=== PATIENT | male | born 1970 ===

== ENCOUNTER 2016-12-09 06:45 | Inpatient (IN) | payer SELFPAY ==
[2016-12-09] MEDS ORDERED: Lorazepam 2 MG/ML VIAL ONE (07:01)
[2016-12-09] MEDS ORDERED: Ketorolac Tromethamine 30 MG/ML VIAL ONE (07:05)
[2016-12-09] MEDS ORDERED: Ondansetron HCl/PF 4 MG/2 ML Vial ONE (07:05)
[2016-12-09 07:15] LABS: #Basophils 0.2 thou/uL (0.0-0.2); #Eosinphils 0.6 thou/uL (0.0-0.7); #Lymphocytes 5.1 thou/uL (1.20-3.40); #Monocytes 1.2 thou/uL (0.11-0.59); #Neutrophils 11.3 thou/uL (1.40-6.50); %Eosinophils 3.3 % (0.0-10.0); %Lymphocytes 27.8 % (21.0-51.0); %Monocytes 6.6 % (0.0-10.0); Hematocrit 51.9 % (42.0-52.0); Mean Platelet Volume 7.7 fL (7.4-10.4); Red Blood Cell (RBC) Count 5.63 mill/uL (4.70-6.10); White Blood Cell (WBC) Count 18.4 thou/uL (4.8-10.8)
--- NOTE | 2016-12-09 07:34 | CT ---
CT ABDOMEN AND PELVIS NONCONTRAST: History: Bilateral flank pain. FINDINGS: No comparison. Each renal collecting system and ureter are decompressed without stone apparent. Urinary bladder is also decompressed. Phleboliths are present throughout the retroperitoneum and pelvis. Lack of contrast limits evaluation for other abnormalities. Prominent patient motion artifact limits detail. There is calcification in the arterial structures. Liver is diffusely hypodense. IMPRESSION: 1. No CT evidence of urinary tract obstruction or calcification. 2. Hepatosteatosis. POS: [facility]
[2016-12-09 07:36] LABS: ALT (SGPT) 52 U/L (8-55); AST (SGOT) 31 U/L (5-34); Alkaline Phosphatase 68 U/L (40-150); Anion Gap 22 mmol/L (10-20); BUN (Urea Nitrogen) 14 mg/dL (8.9-20.6); Bilirubin, Total 0.9 mg/dL (0.2-1.2); Calc. Creatinine Clearance 0 mL/min (70-130); Calcium 9.9 mg/dL (7.8-10.44); Carbon Dioxide 20 mmol/L (22-29); Chloride 100 mmol/L (98-107); Estimated GFR-MDRD 74; Globulin 4.1 g/dL (2.4-3.5); Protein, Total 8.7 g/dL (6.0-8.3)
[2016-12-09 08:03] LABS: Lactic Acid - Sepsis 5.2 mmol/L (0.5-2.2)
[2016-12-09 08:51] LABS: Troponin I Less than 0.010 ng/mL (< 0.028)
[2016-12-09] MEDS ORDERED: Pantoprazole 40 MG VIAL ONE (08:59)
[2016-12-09] MEDS ORDERED: Fentanyl 100 MCG/2 ML VIAL ONE (09:03)
--- NOTE | 2016-12-09 09:56 | ULT ---
GALLBLADDER ULTRASOUND: Date: 12/09/16 CLINICAL HISTORY: Right upper quadrant pain. Reference made to CT exam from earlier same date. FINDINGS: There is increased echotexture of the hepatic parenchyma. This indicates fatty infiltration of the l iver with relative sparing near the gallbladder. No evidence of cholelithiasis or gallbladder wall t hickening. Common duct is normal at 3.0 mm. Giordano's sign reported as negative by the online content editor. N o ascites. IMPRESSION: 1. No acute gallbladder pathology. 2. Coarsened/increased echotexture of the hepatic parenchyma, favoring hepatic steatosis with relat waldemar sparing of the gallbladder. This could be confirmed with liver function enzymes as necessary. POS: [facility]
--- NOTE | 2016-12-09 10:56 | CT ---
CONTRAST ENHANCED ABDOMEN AND PELVIC CT: INDICATION: Abdominal pain. Elevated lactate. FINDINGS: There is peripancreatic inflammation and free fluid. No drainable fluid collection. The contrast-e nhanced pancreas is otherwise homogeneous without definitive evidence for necrosis. There is hepati c steatosis with scattered areas of focal fatty sparring. No focal splenic lesion. Adrenal glands are unremarkable. No acute renal pathology. The contrast-opacified small bowel is normal in calibe r. There are bilateral patulous fat-containing inguinal rings. There is a fat-containing umbilical hernia without inflammation. No free air. The imaged aorta is normal in caliber. There are scatt ered patchy opacities of each lung base favoring atelectasis. There is mild colonic diverticulosis. Osseous structures reveal no acute pathology. IMPRESSION: 1. CT evidence of acute pancreatitis. 2. Hepatic steatosis. POS: [facility]
[2016-12-09 11:21] LABS: Bilirubin Negative (Negative); Blood, Urine Negative (Negative); Glucose, Urine (Dipstick) Negative (Negative); Ketone, Urine Negative (Negative); Nitrite Negative (Negative); Protein, Urine (Dipstick) Trace mg/dL (Neg-Trace); Urobilinogen 0.2 mg/dL (0.2-1.0)
[2016-12-09] MEDS ORDERED: FLU VACC QS2017-18 36 mo. & older 0.5 ML SYRINGE IM ONE (11:45)
[2016-12-09] MEDS: Sodium Chloride 0.9% 1,000 ML IV SCH ×4 (11:45→23:56)
[2016-12-09] MEDS ORDERED: Labetalol HCl 100 MG/20 ML VIAL SLOW IVP SCH ×4 (11:45→18:00)
[2016-12-09 12:07] LABS: Cholesterol 252 mg/dl (< 200 Desired)
[2016-12-09 12:29] LABS: Amphetamine Not Detected (NotDetected); Methadone Not Detected (NotDetected); Methamphetamine Detected (NotDetected)
[2016-12-09] MEDS ORDERED: Ondansetron HCl/PF 4 MG/2 ML Vial IVP PRN (13:15)
[2016-12-09] MEDS ORDERED: Lorazepam 2 MG/ML VIAL SLOW IVP SCH ×3 (14:15→18:00)
[2016-12-09] MEDS ORDERED: ISOVUE-370 76%-LOCM 1 ML ONE (14:58)
[2016-12-09 15:23] LABS: Hemoglobin A1c 5.3 % (4.0-6.0)
[2016-12-09 15:35] LABS: Lactic Acid - Sepsis 3.9 mmol/L (0.5-2.2)
[2016-12-09 15:38] LABS: Acetaminophen Less than 6.0 mcg/mL (10.0-30.0); CK (CPK) 79 U/L (30-200); Salicylate Less than 8.0 mg/dL (15.0-30.0)
[2016-12-09 15:44] LABS: Troponin I 0.012 ng/mL (< 0.028)
[2016-12-09] MEDS ORDERED: Sodium Chloride 0.9% 1,000 ML IV SCH (17:31)
--- NOTE | 2016-12-09 20:55 | HP-2 ---
CODE STATUS: FULL. PRIMARY CARE PHYSICIAN: None. ATTENDING: Rush Min M.D. RESIDENT: Shiela Bey M.D., PGY-2. HISTORIAN: Patient. CHIEF COMPLAINT: Abdominal pain. HISTORY OF PRESENT ILLNESS: The patient is a 46-year-old male with no past medical history, who pre sents with sudden onset, sharp, constant left upper quadrant pain. The pain radiates into his back and associated with nausea. The patient tried ibuprofen for the pain and he states that it was not helpful. The patient states that the pain is worse with inspiration. He has never had pain like th is before. He denies any chronic medical problems. He does not take any medications. He denies hi story of gallbladder disease. He has never had any abdominal surgeries. The patient states that he drinks a couple of beers per month and denies binge drinking. In the emergency department, the patient received 100 mcg of fentanyl, morphine 8 mg, Zofran 8 mg, P rotonix 40 mg, and 1 liter of normal saline. PAST MEDICAL HISTORY: None. PAST SURGICAL HISTORY: Tonsillectomy. ALLERGIES: No known drug allergies. MEDICATIONS: None. FAMILY HISTORY: The patient states that his mother has history of coronary artery disease. SOCIAL HISTORY: The patient smokes 1 pack per week. Alcohol use as described above. He reports da radha marijuana use. Occupation: The patient works at [employer]. REVIEW OF SYSTEMS: General: The patient reports subjective fever, denies weight change, appetite c hange, sleep change, night sweats and fatigue. Eyes: The patient denies vision changes and eye reyna n. ENT: The patient denies nasal congestion, rhinorrhea, and sore throat. Respiratory: The patie nt reports shortness of breath. He denies cough, congestion, and exercise intolerance. Cardiovascu lar: The patient denies chest pain, palpitations, edema, paroxysmal nocturnal dyspnea and orthopnea . Gastrointestinal: The patient reports nausea and abdominal pain. He denies vomiting, diarrhea, constipation and GI bleeding. Genitourinary: The patient denies incontinence, dysuria, polyuria or discharge. Skin: The patient denies rashes, lesions, jaundice and itching. Musculoskeletal: The patient denies pain, tenderness, stiffness, swelling and arthritis/arthralgias. Neurologic: The p atient denies weakness, numbness, syncope, and seizure. Psychiatric: The patient denies anxiety an d depression. PHYSICAL EXAMINATION: VITAL SIGNS: Blood pressure 223/125, pulse 58, respirations 18, T-max 98.1, pulse ox 98% on room ai r, weight 95.71 kilograms. GENERAL: The patient is alert and oriented x3. He is in no apparent distress. However, he appears to be extremely uncomfortable due to pain. He is appropriately interactive. HEENT: Eyes: Pupils are equal, round, and reactive to light. Extraocular muscles are intact. Exa mination of the oropharynx reveals dry mucous membranes. NECK: Supple with no lymphadenopathy. CARDIOVASCULAR: Regular rate and rhythm with no murmurs, rubs or gallops. RESPIRATORY: Lungs clear to auscultation bilaterally. The patient is breathing with slightly incre ased effort. There are no retractions present. SKIN: Warm and dry with no cyanosis or lesions. ABDOMEN: Soft. There is diffuse tenderness to palpation especially worse in the epigastrium. Ther e is voluntary guarding with no rebound tenderness. EXTREMITIES: No clubbing, cyanosis or edema. MUSCULOSKELETAL: Structure and tone within normal limits. NEUROLOGIC: Cranial nerves II-XII intact with no focal deficits. LABORATORY DATA: 1. CBC: White blood cell count of 18.4, hemoglobin 17.7, hematocrit 51.9, platelet count of 324. 2. CMP: Sodium 138, potassium 4.0, chloride 100, CO2 of 20, BUN 14, creatinine 1.08, glucose 163, total protein 8.7, albumin 4.1, total bilirubin 0.9, AST 31, ALT 52, alkaline phosphatase 68. 3. Lactic acid 5.2. 4. Cardiac enzymes: CK-MB 1.4, troponin less than 0.01. 5. Lipase 8615. EKG shows normal sinus rhythm with no evidence of ischemia or arrhythmia. IMAGING: CT of the abdomen and pelvis shows no evidence of stones, hepatic steatosis is present. ASSESSMENT AND PLAN: The patient is a 46-year-old male with no past medical history, who reports on e-day history of severe abdominal pain. 1. Hypertensive urgency. We will add p.r.n. labetalol as a goal of decreasing patient's blood pres sure no more than 25% in 24 hours. We will add amlodipine for daily blood pressure control. We debi l also order a urine drug screen due to the fact the patient has no other comorbidities. 2. Acute pancreatitis. Amita score of 1 on admission. We will begin treatment with IV fluids, franko wel rest and pain control with morphine. Right upper quadrant ultrasound has been ordered and is pe nding. We will also order fasting lipid panel and hemoglobin A1c to further investigate causes of a cute pancreatitis. DISPOSITION: Stable. LENGTH OF HOSPITAL STAY: At least 2 midnights. Symptomatic medications will be provided. History and physical exam as well as management discussed with Dr. Rush Min, who seen and evaluated the patient and is in agreement with this plan.
--- NOTE | 2016-12-09 21:51 | HP ---
9DATE OF ADMISSION: 12/09/2016 CHIEF COMPLAINT: Abdominal pain. HISTORY OF PRESENT ILLNESS: This is a 46-year-old male with no past medical history who presents with acute onset of mid epigastric and left abdominal pain that was described as achy 12/10 pain with associated nausea, vomiting, and chills. No diarrhea, constipation, hematemesis, hematochezia, or melena. He was in the ED where he was diagnosed with pancreatitis, given IV fluids, 5 mg labetalol IV for elevated blood pressure and subsequently admitted to our service. REVIEW OF SYSTEMS: CONSTITUTIONAL: Positive for chills. Negative for fever. EYES: Without decreased visual acuity or eye pain. ENT: Ears without decrease hearing or ear pain. No sore throat or oral lesions. CARDIOVASCULAR: No chest pain or palpitations. RESPIRATORY: No shortness of breath or wheezing. ABDOMEN: See HPI. : Denies dysuria or urgency. MUSCULOSKELETAL: No myalgias or arthralgias. NEUROLOGIC: No numbness or weakness. PSYCHIATRIC: No depression or anxiety. PAST MEDICAL HISTORY: Negative. PAST SURGICAL HISTORY: Positive for tonsillectomy. MEDICATIONS: None. ALLERGIES: PENICILLINS, reportedly. SOCIAL HISTORY: Positive for tobacco abuse, marijuana abuse and occasional alcohol which he says less than a 6-pack this summer. FAMILY HISTORY: Positive for coronary artery disease in the father. PHYSICAL EXAMINATION: VITAL SIGNS: Vitals most recent we have available are actually from the ED include a temperature of 98.1, pulse 73, blood pressure 231/121, respirations 17 , O2 sat 90% on room air. GENERAL: The patient appears uncomfortable, nontoxic. HEENT: Eyes without icterus or injection. Pinna is normal. Nares patent. Moist mucous membranes. NECK: Trachea midline and mobile. CARDIOVASCULAR: Regular rate and rhythm without murmurs, gallops or rubs. No peripheral edema. RESPIRATORY: Clear to auscultation bilaterally. No wheeze, rales or rhonchi. Slight tachypnea. ABDOMEN: Hyperactive bowel sounds and palpation across the upper abdomen. No peritoneal signs, guarding, or rigidity. : Deferred. MUSCULOSKELETAL: Without deformity or fracture or effusion. Neuro motor 5/5 in all 4 extremities. Sensation intact to light touch as well. SKIN: With wound, but he does have several scattered hyperpigmented patches across upper body. He is cool to touch without . LYMPHATIC: Without cervical or axillary lymphadenopathy. PSYCHIATRIC: Alert and oriented x3. Mood and affect appropriate for current situation. LABORATORY DATA: Positive for a white count of 18.4, hemoglobin of 17.7, platelets 323. Chemistry: Sodium 138, potassium 4, chloride 100, CO2 of 28, gap of 22, creatinine 1.08, glucose 163, lactic acid of 5.2, and normal LFTs otherwise. Lipase 8615. Troponin less than 0.01. Urine is negative. IMAGING: Positive for abdominal CT with multiple fecaliths, fat stranding around the pancreas, and otherwise no acute findings. Abdominal ultrasound is positive for abnormal echotexture of the liver consistent with hepatic steatosis as well as no gallstones visualized. ASSESSMENT AND PLAN: This is a 46-year-old with: 1. Acute pancreatitis. We will begin treated with IV morphine or Dilaudid for pain control. Await lipid panel, A1c for secondary causes. Normal saline 200 mL an hour of 24 hours and monitor closely. 2. Hypertensive urgency. We will go and give labetalol 10 mg, start Norvasc and possibly hydrochlorothiazide pending above workup 3. Tobacco abuse, counseled cessation. 4. Marijuana abuse. Discussed with the patient, we will go ahead and order UDS. 5. Deep venous thrombosis prophylaxis with Lovenox. 6. Gastrointestinal prophylaxis with a PPI while NPO. He can advance his diet as tolerated as far as I am concerned. He will start with ice chips and advance Zofran p.r.n. nausea. MTDD
[2016-12-09] MEDS: Atorvastatin Calcium 40 MG TAB PO SCH (21:58)
[2016-12-10] MEDS ORDERED: Labetalol HCl 100 MG/20 ML VIAL SLOW IVP PRN (01:17)
[2016-12-10] MEDS: Lorazepam 2 MG/ML VIAL SLOW IVP PRN ×3 (03:16→20:54)
[2016-12-10] MEDS: Sodium Chloride 0.9% 1,000 ML IV SCH ×4 (04:07→20:54)
[2016-12-10 05:02] LABS: #Eosinphils 0.1 thou/uL (0.0-0.7); #Lymphocytes 1.3 thou/uL (1.20-3.40); #Monocytes 1.1 thou/uL (0.11-0.59); #Neutrophils 13.5 thou/uL (1.40-6.50); %Basophils 0.1 % (0.0-1.0); %Eosinophils 0.4 % (0.0-10.0); %Lymphocytes 8.3 % (21.0-51.0); %Monocytes 6.8 % (0.0-10.0); Hematocrit 48.2 % (42.0-52.0); Mean Platelet Volume 7.6 fL (7.4-10.4); Red Blood Cell (RBC) Count 5.18 mill/uL (4.70-6.10)
[2016-12-10 05:17] VITALS: BMI 29.0
[2016-12-10 05:37] LABS: ALT (SGPT) 35 U/L (8-55); AST (SGOT) 21 U/L (5-34); Alkaline Phosphatase 54 U/L (40-150); Anion Gap 14 mmol/L (10-20); BUN (Urea Nitrogen) 8 mg/dL (8.9-20.6); Calc. Creatinine Clearance 192 mL/min (70-130); Calcium 8.7 mg/dL (7.8-10.44); Carbon Dioxide 22 mmol/L (22-29); Chloride 100 mmol/L (98-107); Estimated GFR-MDRD Greater than 90; Globulin 3.3 g/dL (2.4-3.5); Protein, Total 7.3 g/dL (6.0-8.3)
[2016-12-10] MEDS: Enoxaparin Sodium 40 MG/0.4 ML SYRINGE SC SCH (08:14)
--- NOTE | 2016-12-10 08:42 | PDOC.FM ---
Addendum entered and electronically signed by Shiela Bey MD 12/10/16 09: 40: Ileus -likely secondary to narcotics; will continue narcotics for now to treat pain due to pancreatitis. -advance diet to clear liquids, to aid gut motility Original Note: - Subjective Subjective: Pt's blood pressures finally started to normalize this morning. He still reports diffuse abdominal pain. He has not passed gas or had a bowel movement since admission. - Objective MAR Reviewed: Yes Vital Signs & Weight: Vital Signs (12 hours) Pulse BP 12/10/16 08:13 84 144/90 H 12/10/16 01:08 84 185/99 H Weight Weight 97.2 kg Most Recent Monitor Data Heart Rate from ECG 91 NIBP 161/104 NIBP BP-Mean 125 Respiration from ECG 20 SpO2 100 I&O: 12/09/16 12/10/16 12/11/16 06:59 06:59 06:59 Intake Total 2834 Output Total 2175 Balance 659 Result Diagrams: 12/10/16 04:04 12/10/16 04:04 <Shiela Bey - Last Filed: 12/10/16 09:06> - Objective Vital Signs & Weight: Vital Signs (12 hours) Temp Pulse Resp BP Pulse Ox 12/10/16 08:13 84 144/90 H 12/10/16 08:00 98 F 84 17 100 12/10/16 07:51 100 12/10/16 01:08 84 185/99 H Weight Weight 97.2 kg Most Recent Monitor Data Heart Rate from ECG 91 NIBP 144/90 NIBP BP-Mean 104 Respiration from ECG 21 SpO2 100 I&O: 12/09/16 12/10/16 12/11/16 06:59 06:59 06:59 Intake Total 2834 436 Output Total 2175 430 Balance 659 6 Result Diagrams: 12/10/16 04:04 12/10/16 04:04 <Rush Min - Last Filed: 12/10/16 10:22> Phys Exam - Physical Examination Constitutional: NAD Respiratory: clear to auscultation bilateral Cardiovascular: RRR Gastrointestinal: positive bowel sounds diffuse tenderness; diffuse distention and tympany Musculoskeletal: no edema <Shiela Bey - Last Filed: 12/10/16 09:06> Dx/Plan (1) Hypertensive urgency Code(s): I16.0 - HYPERTENSIVE URGENCY Status: Acute Plan: 2/2 to methamphetamine intoxication. prn antihypertensives and ativan for BP >180/100 Amlodipine started. will transfer out of the unit today. (2) Acute pancreatitis Code(s): K85.90 - ACUTE PANCREATITIS WITHOUT NECROSIS OR INFECTION, UNSP Status: Acute Plan: uncertain etiology IV fluids, pain control with morphine. advance to clear liquids. (3) Hypertriglyceridemia Code(s): E78.1 - PURE HYPERGLYCERIDEMIA Status: Acute Plan: Will start statin. (4) Methamphetamine abuse Code(s): F15.10 - OTHER STIMULANT ABUSE, UNCOMPLICATED Status: Acute Plan: Pt denies meth use although UDS shows meth. <Shiela Bey - Last Filed: 12/10/16 09:06> - Plan Plan: Seen and examined with Dr. Bey. Conn portions of the history and physical exam repeated. I agree with their assessment and plan with the following addendum. ROS: no f/c. No cp/sob. Abd pain as detailed, improved from yesterday. Some of his presentation c/w acute meth tox. IVF, advance diet to clears if he tolerates. Elevated bili with negative hepatobiliary workup thus far. Will monitor. <Rush Min - Last Filed: 12/10/16 10:22>
[2016-12-10] MEDS: Atorvastatin Calcium 40 MG TAB PO SCH (20:10)
[2016-12-11] MEDS: Atorvastatin Calcium 40 MG TAB PO SCH ×2 (01:15→21:01)
[2016-12-11] MEDS: Sodium Chloride 0.9% 1,000 ML IV SCH ×5 (04:22→22:49)
[2016-12-11] MEDS: Lorazepam 2 MG/ML VIAL SLOW IVP PRN ×3 (04:37→17:44)
[2016-12-11 05:11] LABS: #Lymphocytes 1.3 thou/uL (1.20-3.40); #Monocytes 1.5 thou/uL (0.11-0.59); #Neutrophils 14.7 thou/uL (1.40-6.50); %Basophils 0.1 % (0.0-1.0); %Eosinophils 0.3 % (0.0-10.0); %Lymphocytes 7.6 % (21.0-51.0); %Monocytes 8.3 % (0.0-10.0); Hematocrit 45.5 % (42.0-52.0); Mean Platelet Volume 7.3 fL (7.4-10.4); Red Blood Cell (RBC) Count 4.84 mill/uL (4.70-6.10); White Blood Cell (WBC) Count 17.5 thou/uL (4.8-10.8)
[2016-12-11 05:31] LABS: ALT (SGPT) 23 U/L (8-55); AST (SGOT) 21 U/L (5-34); Alkaline Phosphatase 55 U/L (40-150); Anion Gap 10 mmol/L (10-20); BUN (Urea Nitrogen) 7 mg/dL (8.9-20.6); Bilirubin, Total 3.3 mg/dL (0.2-1.2); Calc. Creatinine Clearance 187 mL/min (70-130); Carbon Dioxide 24 mmol/L (22-29); Chloride 100 mmol/L (98-107); Estimated GFR-MDRD Greater than 90; Protein, Total 7.1 g/dL (6.0-8.3)
[2016-12-11] MEDS ORDERED: Potassium Chloride 20 MEQ TAB PO SCH (07:30)
[2016-12-11] MEDS ORDERED: Morphine Sulfate 2 MG/ML SYRINGE SLOW IVP PRN (07:59)
--- NOTE | 2016-12-11 08:07 | PDOC.FM ---
- Subjective Subjective: Pt continues to have abdominal pain despite scheduled pain meds. He is passing gas, but has not had a bowel movement since prior to admission. - Objective MAR Reviewed: Yes Vital Signs & Weight: Vital Signs (12 hours) Temp Pulse Resp BP Pulse Ox 12/11/16 07:59 98.6 F 84 17 148/89 H 95 12/11/16 04:43 98 F 91 18 144/93 H 95 12/11/16 00:00 99.4 F 93 16 139/89 95 Weight Weight 93.349 kg Most Recent Monitor Data Heart Rate from ECG 91 NIBP 144/90 NIBP BP-Mean 104 Respiration from ECG 21 SpO2 100 I&O: 12/10/16 12/11/16 12/12/16 06:59 06:59 06:59 Intake Total 2834 2236 2300 Output Total 2175 1330 1300 Balance 232 092 9364 Result Diagrams: 12/11/16 04:09 12/11/16 04:09 <Shiela Bey - Last Filed: 12/11/16 08:08> - Objective Vital Signs & Weight: Vital Signs (12 hours) Temp Pulse Resp BP BP Pulse Ox 12/11/16 13:00 98.9 F 84 18 142/82 H 95 12/11/16 12:07 84 142/82 H 12/11/16 08:00 98.6 F 84 17 95 12/11/16 07:59 98.6 F 84 17 148/89 H 95 12/11/16 04:43 98 F 91 18 144/93 H 95 Weight Weight 205 lb 12.8 oz Most Recent Monitor Data Heart Rate from ECG 91 NIBP 144/90 NIBP BP-Mean 104 Respiration from ECG 21 SpO2 100 I&O: 12/10/16 12/11/16 12/12/16 06:59 06:59 06:59 Intake Total 2834 2236 2300 Output Total 2175 1330 1300 Balance 762 346 9042 Result Diagrams: 12/11/16 04:09 12/11/16 04:09 <Ariadne Mosley - Last Filed: 12/11/16 14:42> Phys Exam - Physical Examination Constitutional: NAD Cardiovascular: RRR Gastrointestinal: soft diffuse tenderness; slight distention and tympany Psychiatric: normal affect <Shiela Bey - Last Filed: 12/11/16 08:08> Dx/Plan (1) Acute pancreatitis Code(s): K85.90 - ACUTE PANCREATITIS WITHOUT NECROSIS OR INFECTION, UNSP Status: Acute Plan: uncertain etiology IV fluids Pain control with scheduled and prn morphine. (2) Elevated bilirubin Code(s): R17 - UNSPECIFIED JAUNDICE Status: Acute Plan: conjugated hyperbilirubinemia missed stone vs. inflammation. will repeat RUQ US. (3) Hypertensive urgency Code(s): I16.0 - HYPERTENSIVE URGENCY Status: Resolved Plan: BPs stable. continue amlodipine (4) Hypertriglyceridemia Code(s): E78.1 - PURE HYPERGLYCERIDEMIA Status: Acute Plan: Will start statin. (5) Methamphetamine abuse Code(s): F15.10 - OTHER STIMULANT ABUSE, UNCOMPLICATED Status: Acute Plan: Pt denies meth use although UDS shows meth. <Shiela Bey - Last Filed: 12/11/16 08:08> Attending Addendum - Attending Addendum I personally evaluated the patient and discussed the management with Dr. Bey. I agree with the History, Examination, Assessment and Plan documented above with any addition or exceptions noted below. Patient is still having a lot of pain. He also has an ileus. He is passing gas, but no BM. Total bili has gone up to 3 with direct bili of 1 and normal AST/ ALT. GGT is up, probably due to fatty liver. Ultrasound shows some possible gallbladder sludge, which is probably the cause of the pancreatitis. Will keep patient NPO for now due to ileus. He has gaseous distention of the abdomen and it is tender. Continue IVF and pain medicines. Consider changing to lactated ringers, as they can improve outcome if patient does NOT have hypercalcemia. <Ariadne Mosley - Last Filed: 12/11/16 14:42>
[2016-12-11] MEDS: Enoxaparin Sodium 40 MG/0.4 ML SYRINGE SC SCH (08:37)
--- NOTE | 2016-12-11 13:07 | ULT ---
RIGHT UPPER QUADRANT ULTRASOUND: HISTORY: Pancreatitis, hyperbilirubinemia. FINDINGS: Multiple longitudinal and transverse images of the right upper quadrant of the abdomen are obtained using a multihertz curvilinear transducer. Real-time, color flow, and spectral waveform Doppler kimber lysis is used to evaluate the right upper quadrant. There is some moderate hepatomegaly with the liver measuring 19.5 cm in the mid clavicular line. Fi brofatty change is seen in the liver. The gallbladder contains no evidence of gallstones; however, some hyperechoic material is seen compatible with gallbladder sludge. No evidence of pericholecysti c fluid is seen. Common bile duct is of normal size measuring 5 mm. The right kidney is unremarkab le measuring 12.1 cm from pole to pole. Normal hepatopetal flow is seen in the portal system. IMPRESSION: Gallbladder sludge. Otherwise, unremarkable right upper quadrant ultrasound. POS: [facility]
[2016-12-12] MEDS: Lorazepam 2 MG/ML VIAL SLOW IVP PRN ×4 (00:28→21:22)
[2016-12-12] MEDS: Sodium Chloride 0.9% 1,000 ML IV SCH ×5 (04:37→20:22)
[2016-12-12 05:24] LABS: #Basophils 0.1 thou/uL (0.0-0.2); #Eosinphils 0.1 thou/uL (0.0-0.7); #Lymphocytes 1.6 thou/uL (1.20-3.40); #Monocytes 1.2 thou/uL (0.11-0.59); #Neutrophils 9.8 thou/uL (1.40-6.50); %Basophils 0.5 % (0.0-1.0); %Eosinophils 0.8 % (0.0-10.0); %Lymphocytes 12.3 % (21.0-51.0); %Monocytes 9.3 % (0.0-10.0); Hematocrit 40.7 % (42.0-52.0); Mean Platelet Volume 7.5 fL (7.4-10.4); Red Blood Cell (RBC) Count 4.31 mill/uL (4.70-6.10); White Blood Cell (WBC) Count 12.7 thou/uL (4.8-10.8)
[2016-12-12 07:18] LABS: ALT (SGPT) 22 U/L (8-55); AST (SGOT) 21 U/L (5-34); Alkaline Phosphatase 69 U/L (40-150); Anion Gap 11 mmol/L (10-20); BUN (Urea Nitrogen) 7 mg/dL (8.9-20.6); Bilirubin, Total 2.6 mg/dL (0.2-1.2); Calc. Creatinine Clearance 200 mL/min (70-130); Calcium 8.7 mg/dL (7.8-10.44); Carbon Dioxide 22 mmol/L (22-29); Chloride 104 mmol/L (98-107); Estimated GFR-MDRD Greater than 90; Globulin 3.4 g/dL (2.4-3.5); Protein, Total 6.7 g/dL (6.0-8.3)
[2016-12-12] MEDS: Enoxaparin Sodium 40 MG/0.4 ML SYRINGE SC SCH (08:23)
--- NOTE | 2016-12-12 10:56 | PDOC.FM ---
- Subjective Subjective: Patient states that his pain is better controlled this morning. No adverse events overnight. - Objective MAR Reviewed: Yes Vital Signs & Weight: Vital Signs (12 hours) Temp Pulse Resp BP BP Pulse Ox 12/12/16 08:24 84 139/90 12/12/16 08:21 99.9 F H 84 17 139/90 95 12/12/16 04:00 100.1 F H 82 20 142/88 H 93 L Weight Weight 93.531 kg Most Recent Monitor Data Heart Rate from ECG 91 NIBP 144/90 NIBP BP-Mean 104 Respiration from ECG 21 SpO2 100 I&O: 12/11/16 12/12/16 12/13/16 06:59 06:59 06:59 Intake Total 2236 5200 Output Total 1330 3250 Balance 906 1950 Result Diagrams: 12/12/16 04:14 12/12/16 04:14 <Shiela Bey - Last Filed: 12/12/16 10:56> - Objective Vital Signs & Weight: Vital Signs (12 hours) Temp Pulse Resp BP BP Pulse Ox 12/12/16 12:15 98.3 F 81 16 142/93 H 95 12/12/16 08:24 84 139/90 12/12/16 08:21 99.9 F H 84 17 139/90 95 12/12/16 04:00 100.1 F H 82 20 142/88 H 93 L Weight Weight 206 lb 3.2 oz Most Recent Monitor Data Heart Rate from ECG 91 NIBP 144/90 NIBP BP-Mean 104 Respiration from ECG 21 SpO2 100 I&O: 12/11/16 12/12/16 12/13/16 06:59 06:59 06:59 Intake Total 2236 5200 Output Total 1330 3250 Balance 906 1950 Result Diagrams: 12/12/16 04:14 12/12/16 04:14 <Ariadne Mosley - Last Filed: 12/12/16 14:38> Phys Exam - Physical Examination Gastrointestinal: positive bowel sounds distention and tympany unchanged from prior exam <Shiela Bey - Last Filed: 12/12/16 10:56> Dx/Plan (1) Acute pancreatitis Code(s): K85.90 - ACUTE PANCREATITIS WITHOUT NECROSIS OR INFECTION, UNSP Status: Acute Plan: uncertain etiology Pt notes improvement in pain. Will slowly advance diet to clear. (2) Elevated bilirubin Code(s): R17 - UNSPECIFIED JAUNDICE Status: Acute Plan: conjugated hyperbilirubinemia improving. RUQ US shows GB sludge. Repeat CMP in am. (3) Hypertensive urgency Code(s): I16.0 - HYPERTENSIVE URGENCY Status: Resolved Plan: BPs stable. continue amlodipine (4) Hypertriglyceridemia Code(s): E78.1 - PURE HYPERGLYCERIDEMIA Status: Acute Plan: Will start statin. (5) Methamphetamine abuse Code(s): F15.10 - OTHER STIMULANT ABUSE, UNCOMPLICATED Status: Acute Plan: Pt denies meth use although UDS shows meth. - Plan Plan: Transfer to medical floor. <Shiela Bey - Last Filed: 12/12/16 10:56> Attending Addendum - Attending Addendum I personally evaluated the patient and discussed the management with Dr. Bey. I agree with the History, Examination, Assessment and Plan documented above with any addition or exceptions noted below. Patient is doing much better today. He says pain is adequately controlled and is still passing gas. He has not had a BM yet. His abdomen is soft with mild tenderness. He plans walk after his nap this morning. Labs are improving. It looks like pancreatitis was caused by gallbladder sludge seen on ultrasound. Since his ileus is improved, will start clear liquid diet. Will need to address elevated triglyceridesafter discharge. Will need low carb, low fat diet. Will transfer to medical floor. <Ariadne Mosley - Last Filed: 12/12/16 14:38>
[2016-12-12] MEDS: Atorvastatin Calcium 40 MG TAB PO SCH (20:23)
[2016-12-13] MEDS: Sodium Chloride 0.9% 1,000 ML IV SCH ×2 (02:56→05:34)
[2016-12-13 05:44] LABS: #Basophils 0.1 thou/uL (0.0-0.2); #Eosinphils 0.2 thou/uL (0.0-0.7); #Lymphocytes 1.5 thou/uL (1.20-3.40); #Monocytes 1.4 thou/uL (0.11-0.59); #Neutrophils 9.6 thou/uL (1.40-6.50); %Basophils 0.5 % (0.0-1.0); %Eosinophils 1.4 % (0.0-10.0); %Lymphocytes 11.4 % (21.0-51.0); Hematocrit 38.9 % (42.0-52.0); Mean Platelet Volume 6.6 fL (7.4-10.4); Red Blood Cell (RBC) Count 4.17 mill/uL (4.70-6.10); White Blood Cell (WBC) Count 12.6 thou/uL (4.8-10.8)
[2016-12-13 09:49] LABS: ALT (SGPT) 61 U/L (8-55); AST (SGOT) 89 U/L (5-34); Alkaline Phosphatase 74 U/L (40-150); Anion Gap 13 mmol/L (10-20); BUN (Urea Nitrogen) 6 mg/dL (8.9-20.6); Bilirubin, Total 4.6 mg/dL (0.2-1.2); Calc. Creatinine Clearance 212 mL/min (70-130); Calcium 8.8 mg/dL (7.8-10.44); Carbon Dioxide 22 mmol/L (22-29); Chloride 103 mmol/L (98-107); Estimated GFR-MDRD Greater than 90; Globulin 3.6 g/dL (2.4-3.5)
[2016-12-13] MEDS: Enoxaparin Sodium 40 MG/0.4 ML SYRINGE SC SCH (10:01)
[2016-12-13] MEDS: Lactated Ringer's 1,000 ML IV SCH ×3 (10:05→19:59)
--- NOTE | 2016-12-13 10:27 | PDOC.FM ---
- Subjective Subjective: [place] overnight, VSS. Pt tolerated CLD yesterday and w/ breakfast this AM. Endorses improved pain. 3 BM yesterday and + flatus. Endorses ambulation. - Objective MAR Reviewed: Yes Vital Signs & Weight: Vital Signs (12 hours) Temp Pulse Resp BP Pulse Ox 12/13/16 08:00 98.4 F 87 16 159/100 H 98 12/13/16 03:48 98.3 F 90 19 158/83 H 94 L 12/13/16 00:03 99.3 F 83 20 161/98 H 99 Weight Weight 102.087 kg Most Recent Monitor Data Heart Rate from ECG 91 NIBP 144/90 NIBP BP-Mean 104 Respiration from ECG 21 SpO2 100 I&O: 12/12/16 12/13/16 12/14/16 06:59 06:59 06:59 Intake Total 5200 2630 Output Total 3250 1250 Balance 1950 1380 Result Diagrams: 12/13/16 05:15 12/13/16 09:19 <Rush Walker - Last Filed: 12/13/16 10:25> - Objective Vital Signs & Weight: Vital Signs (12 hours) Temp Pulse Resp BP Pulse Ox 12/13/16 08:00 98.4 F 87 16 159/100 H 98 12/13/16 03:48 98.3 F 90 19 158/83 H 94 L 12/13/16 00:03 99.3 F 83 20 161/98 H 99 Weight Weight 102.087 kg Most Recent Monitor Data Heart Rate from ECG 91 NIBP 144/90 NIBP BP-Mean 104 Respiration from ECG 21 SpO2 100 I&O: 12/12/16 12/13/16 12/14/16 06:59 06:59 06:59 Intake Total 5200 2630 Output Total 3250 1250 Balance 1950 1380 Result Diagrams: 12/13/16 05:15 12/13/16 09:19 <Mile Paul - Last Filed: 12/13/16 11:06> Phys Exam - Physical Examination Constitutional: NAD Respiratory: no wheezing, clear to auscultation bilateral Cardiovascular: RRR, no significant murmur Gastrointestinal: positive bowel sounds mild distention w/ mild TTP LUQ. No guarding/rebound tenderness. No rigidit Musculoskeletal: no edema, pulses present Neurological: moves all 4 limbs Psychiatric: A&O x 3 Skin: cap refill <2 seconds <Rush Walker - Last Filed: 12/13/16 10:25> Dx/Plan (1) Acute pancreatitis Code(s): K85.90 - ACUTE PANCREATITIS WITHOUT NECROSIS OR INFECTION, UNSP Status: Acute Plan: Pt tolerating CLD w/o worsening of abdominal pain + bowel function Will decrease pain meds this morning and re-eval after breakfast w/ likely ADAT thereafter Pt w/ elevated bili and sludge on RUQ U/S w/ gallbladder as likely source Will plan to consult gen surg for further eval and likely marlyn this hospitalization Will wean fluids as PO intake improves (2) HTN (hypertension) Code(s): I10 - ESSENTIAL (PRIMARY) HYPERTENSION Status: Acute Plan: Will continue w/ PO norvasc No sxs of HTN emergency at this time (3) Elevated bilirubin Code(s): R17 - UNSPECIFIED JAUNDICE Status: Acute Plan: Likely related to hepatic steatosis and gallbladder pathology Will continue to monitor Consult surgery for removal <Rush Walker - Last Filed: 12/13/16 10:25> Attending Addendum - Attending Addendum I personally evaluated the patient and discussed the management with Dr. Walker I agree with the History, Examination, Assessment and Plan documented above with any addition or exceptions noted below- Patient tolerating clears; wants to try something more substantial; pain controlled. Afebrile VSS A/P: 1) Pancreatitis- improved; advance diet; wean pain meds, 2) Gallbladder sludge- possible etiology of pancreatitis- will discuss with surgery possibility of cholecystectomy. <Mile Paul - Last Filed: 12/13/16 11:06>
[2016-12-13] MEDS ORDERED: Potassium Chloride 20 MEQ TAB PO SCH (10:30)
[2016-12-13] MEDS: Atorvastatin Calcium 40 MG TAB PO SCH (19:59)
[2016-12-14 05:42] LABS: #Basophils 0.1 thou/uL (0.0-0.2); #Eosinphils 0.2 thou/uL (0.0-0.7); #Lymphocytes 1.5 thou/uL (1.20-3.40); #Monocytes 1.4 thou/uL (0.11-0.59); #Neutrophils 8.9 thou/uL (1.40-6.50); %Basophils 0.4 % (0.0-1.0); %Eosinophils 1.5 % (0.0-10.0); %Lymphocytes 12.9 % (21.0-51.0); %Monocytes 11.6 % (0.0-10.0); Hematocrit 39.7 % (42.0-52.0); Mean Platelet Volume 6.8 fL (7.4-10.4); Red Blood Cell (RBC) Count 4.24 mill/uL (4.70-6.10)
[2016-12-14] MEDS: Lactated Ringer's 1,000 ML IV SCH (06:09)
[2016-12-14 06:15] LABS: ALT (SGPT) 132 U/L (8-55); AST (SGOT) 137 U/L (5-34); Alkaline Phosphatase 116 U/L (40-150); Anion Gap 13 mmol/L (10-20); BUN (Urea Nitrogen) 5 mg/dL (8.9-20.6); Bilirubin, Total 2.5 mg/dL (0.2-1.2); Calc. Creatinine Clearance 215 mL/min (70-130); Calcium 8.6 mg/dL (7.8-10.44); Carbon Dioxide 23 mmol/L (22-29); Chloride 103 mmol/L (98-107); Estimated GFR-MDRD Greater than 90; Globulin 3.8 g/dL (2.4-3.5)
--- NOTE | 2016-12-14 08:17 | PDOC.FM ---
- Subjective Subjective: Tolerated regular diet yesterday w/ no endorsed abdominal pain. Still endorsing some left sided abdominal pain and has been requesting 2 mg morphine PRN for this. + Bowel function. Ambulating. NPO at midnight for possible marlyn this AM. VSS, no new complaints. - Objective MAR Reviewed: Yes Vital Signs & Weight: Vital Signs (12 hours) Temp Pulse Resp BP Pulse Ox 12/14/16 08:00 98.4 F 78 20 143/81 H 96 12/14/16 04:00 98.4 F 75 16 163/89 H 96 12/14/16 00:00 98.6 F 78 16 158/86 H 97 Weight Weight 97.749 kg Most Recent Monitor Data Heart Rate from ECG 91 NIBP 144/90 NIBP BP-Mean 104 Respiration from ECG 21 SpO2 100 I&O: 12/13/16 12/14/16 12/15/16 06:59 06:59 06:59 Intake Total 2630 4720 Output Total 1250 3775 Balance 1380 945 Result Diagrams: 12/14/16 04:37 12/14/16 04:37 <Rush Walker - Last Filed: 12/14/16 08:15> - Objective Vital Signs & Weight: Vital Signs (12 hours) Temp Pulse Resp BP Pulse Ox 12/14/16 08:00 98.4 F 78 20 143/81 H 96 12/14/16 04:00 98.4 F 75 16 163/89 H 96 12/14/16 00:00 98.6 F 78 16 158/86 H 97 Weight Weight 97.749 kg Most Recent Monitor Data Heart Rate from ECG 91 NIBP 144/90 NIBP BP-Mean 104 Respiration from ECG 21 SpO2 100 I&O: 12/13/16 12/14/16 12/15/16 06:59 06:59 06:59 Intake Total 2630 4720 Output Total 1250 3775 Balance 1380 945 Result Diagrams: 12/14/16 04:37 12/14/16 04:37 <Mile Paul - Last Filed: 12/14/16 10:56> Phys Exam - Physical Examination Constitutional: NAD Respiratory: no wheezing, clear to auscultation bilateral Cardiovascular: RRR, no significant murmur Gastrointestinal: soft mild TTP left abdomen, improved distention Musculoskeletal: pulses present Neurological: moves all 4 limbs Psychiatric: A&O x 3 Skin: cap refill <2 seconds <Rush Walker - Last Filed: 12/14/16 08:15> Dx/Plan (1) Acute pancreatitis Code(s): K85.90 - ACUTE PANCREATITIS WITHOUT NECROSIS OR INFECTION, UNSP Status: Acute Plan: Pt tolerating regular w/o worsening of abdominal pain + bowel function Will d/c IV pain meds and have tylenol available Pt w/ elevated bili and sludge on RUQ U/S w/ gallbladder as likely source Spoke w/ gen surg this AM for further eval and likely marlyn D/c fluids (2) HTN (hypertension) Code(s): I10 - ESSENTIAL (PRIMARY) HYPERTENSION Status: Acute Plan: Will continue w/ PO norvasc No sxs of HTN emergency at this time (3) Elevated bilirubin Code(s): R17 - UNSPECIFIED JAUNDICE Status: Acute Plan: Likely related to hepatic steatosis and gallbladder pathology Will continue to monitor Consult surgery for removal <Rush Walker - Last Filed: 12/14/16 08:15> Attending Addendum - Attending Addendum I personally evaluated the patient and discussed the management with Dr. Walker I agree with the History, Examination, Assessment and Plan documented above with any addition or exceptions noted below- Patient without complaints. Pain improved. Tolerated regular diet yesterday. Afebrile VSS. A/P: 1) Pancreatitis- improved; surgery consult today for possible lap marlyn as he has gallbladder sludge and this was most likely etiology of his pancreatitis. <Mile Paul - Last Filed: 12/14/16 10:56>
[2016-12-14] MEDS ORDERED: Lactated Ringer's 1,000 ML IV SCH (08:30)
--- NOTE | 2016-12-14 08:42 | CON ---
DATE OF CONSULTATION: 12/14/2016 HISTORY OF PRESENT ILLNESS: Kishor Serrano is a 46-year-old male patient, daisy and Jorgito meza. Today is Tuesday, he had acute onset of abdominal pain, naus ea, he has never had such pain before. He presented to the emergency room and was admitted to [facility]. His lipase was markedly elevated at 8615. His bilirubin was 3.3, increasing to 4.6, now down to 2.5. AST and ALT had become elevated in his later hospitalization normal initiall y. Alkaline phosphatase is normal. Ultrasound of the gallbladder has been obtained on 2 different occasions, 12/09/2016 and 12/11/2016. This reveals on the later ultrasound, normal bile duct calibe r and gallbladder sludge. He has a fatty appearing liver. Abdominal pelvic CAT scan obtained on 2 different occasions an hour apart on 12/09/2016 noting changes of pancreatitis. The patient feels m uch better now. He had regular food yesterday, n.p.o. today. ALLERGIES: PENICILLIN. SOCIAL HISTORY: Tobacco a pack a day until 3 months ago when he has cut down to only rarely sociall y. Alcohol, rarely socially. MEDICATIONS: None routinely. PAST SURGICAL HISTORY: Noncontributory. PAST MEDICAL HISTORY: Noncontributory. REVIEW OF SYSTEMS: Noncontributory. PHYSICAL EXAMINATION: VITAL SIGNS: Height 6 foot tall, 215 pounds, 29 BMI, 98.4 degrees, 78, 143/81. HEENT: Sclerae nonicteric. LUNGS: Clear to auscultation. CARDIAC: Regular rate and rhythm without murmur or gallop. ABDOMEN: Soft, nontender. EXTREMITIES: Unremarkable. NEUROLOGIC: Intact. No focal deficits. LYMPH: No lymphadenopathy neck, axillae or groins. ASSESSMENT AND PLAN: Biliary pancreatitis. I recommend laparoscopic video cholecystectomy. Liver function tests are elevated; however, his bile duct caliber is normal size. Would recommend cholang iogram. He understands the possibility of an ERCP if cholangiograms are positive. He understands risk of operation, infection, bleeding, visceral and biliary injury and consents. Akash busby
[2016-12-14] MEDS ORDERED: Polyethylene Glycol 3350 17 GM Packet PO SCH (09:00)
[2016-12-14] MEDS ORDERED: Docusate 100 MG CAP PO SCH (09:00)
[2016-12-14] MEDS: Enoxaparin Sodium 40 MG/0.4 ML SYRINGE SC SCH (09:54)
[2016-12-14] MEDS ORDERED: Fentanyl 250 MCG/5 ML VIAL ONE (11:34)
[2016-12-14] MEDS ORDERED: Bupivacaine HCl 0.5%/Epinephrine 1:200,000/PF 30 ml Vial ONE (11:48)
[2016-12-14] MEDS ORDERED: Iothalamate Meglumine 60% 50 ML VIAL FS ONE (11:59)
[2016-12-14] MEDS ORDERED: Ketorolac Tromethamine 30 MG/ML VIAL ONE (12:28)
[2016-12-14] MEDS ORDERED: Lidocaine 1% PF 5 ML VIAL ONE (12:28)
[2016-12-14] MEDS ORDERED: Glycopyrrolate 0.2 MG/ML 5 ML SYRINGE ONE (12:28)
[2016-12-14] MEDS ORDERED: Ondansetron HCl/PF 4 MG/2 ML Vial ONE (12:28)
[2016-12-14] MEDS ORDERED: Dexamethasone 20 MG/5 ML VIAL ONE (12:28)
[2016-12-14] MEDS ORDERED: Propofol 200 MG/20 ML VIAL ONE (12:28)
[2016-12-14] MEDS ORDERED: Ondansetron HCl/PF 4 MG/2 ML Vial IVP PRN (12:59)
[2016-12-14] MEDS ORDERED: Promethazine HCl 25 MG/ML VIAL IM PRN (12:59)
[2016-12-14] MEDS ORDERED: Promethazine HCl 25 MG/ML VIAL SLOW IVP PRN (12:59)
[2016-12-14] MEDS ORDERED: Meperidine HCl/PF 25 MG/ML VIAL SLOW IVP PRN (12:59)
--- NOTE | 2016-12-14 14:20 | OP ---
DATE OF PROCEDURE: 12/14/2016 PREOPERATIVE DIAGNOSES: Biliary pancreatitis, gallbladder sludge, abnormal liver function tests, no rmal bile duct caliber 5 mm. POSTOPERATIVE DIAGNOSES: Biliary pancreatitis, gallbladder sludge, abnormal liver function tests, n ormal bile duct caliber 5 mm. PROCEDURES: Laparoscopic video cholecystectomy, normal intraoperative cholangiogram. Small size co mmon bile duct free flow into the duodenum without filling defects (probably elevated liver function tests are due to cholestasis from pancreatitis). SURGEON: Artie Juárez M.D. ANESTHESIA: General. Local 0.5% Marcaine with epinephrine, 30 mL. DESCRIPTION OF THE PROCEDURE: Patient taken to the operating room where under general anesthesia, a bdomen was clipped of hair, prepared with chloraprep, draped in routine fashion. Local anesthetic i nfiltrated into skin and subcutaneous tissue about all port sites. Infraumbilical incision made and pneumoperitoneum to 15 mmHg obtained with the Veress needle, replacing it with a 5 port with laparo scope inserted. Liver appeared to be normal. Fundus of gallbladder. Right subxiphoid incision mad e and 11 port placed. Right subcostal incision was made in mid clavicular, anterior axillary lines and 5 ports placed. Fundus of the gallbladder grasped and reflected cephalad. Infundibulum grasped and reflected laterally. Cystic artery and duct dissected free. Critical view obtained. Cystic a rtery double clipped proximally. Cystic duct singly clipped on the gallbladder side. Opening made in the cystic duct and cholangiocath inserted and cholangiogram was obtained using fluoroscopy revea ling free flow of contrast and a normal small 5 common bile duct without filling defects with free f low into the duodenum. Cholangiocath removed. Cystic artery and duct doubly clipped proximally, cy stic artery and duct divided. The gallbladder and contents removed and submitted to pathology after freed from the liver attached using cautery. Good hemostasis ensured with the cautery. Irrigant a nd pneumoperitoneum evacuated. All instruments removed and all skin incisions approximated with int errupted subdermal 4-0 Monocryl and DermaGlue applied.
[2016-12-14 14:45] VITALS: TEMP 98.2
[2016-12-14] MEDS ORDERED: traMADol HCl 50 MG TAB PO PRN ×2 (14:47)
[2016-12-14] MEDS ORDERED: Acetaminophen 500 MG TAB PO PRN (14:47)
[2016-12-14] MEDS ORDERED: Ibuprofen 600 MG TAB PO PRN (14:47)
--- NOTE | 2016-12-14 16:16 | RAD ---
XR CHOLANGIOGRAM IN SURGERY 12/14/16 HISTORY: Cholecystectomy. COMPARISON: Abdomen CT 12/09/16. FINDINGS: Cholangiogram appears normal with a normal appearance of the common bile duct. Flow right and left i ntrahepatic biliary system as well as the cystic duct. Pancreatic duct is partially seen. IMPRESSION: Normal appearance of the cholangiogram. POS: HEMA
[2016-12-14 19:04] VITALS: BP 144/96
--- NOTE | 2016-12-15 06:23 | DIS-2 ---
DATE OF ADMISSION: 12/09/2016 DATE OF DISCHARGE: 12/14/2016 ADMITTING ATTENDING: Kermit Rey M.D. DISCHARGE ATTENDING: Mile Paul M.D. CONSULTATIONS: General Surgery, Artie Juárez M.D. PROCEDURES: 1. Laparoscopic cholecystectomy. 2. CT abdomen and pelvis showing acute pancreatitis and hepatic steatosis. 3. Right upper quadrant ultrasound showing gallbladder sludge without common bile duct dilatation. 4. Intraoperative cholangiogram showing normal flow of the right and left intrahepatic biliary system as well as the cystic duct without evidence of obstruction. PRIMARY DIAGNOSES: 1. Gallstone pancreatitis. 2. Hepatic steatosis. 3. Hypertensive urgency. SECONDARY DIAGNOSES: None. DISCHARGE MEDICATIONS: 1. Norvasc 5 mg p.o. q. day. 2. Ultram 50 mg p.o. q. 4-6 hours as needed for pain. DISCONTINUED MEDICATIONS: None. HISTORY OF PRESENT ILLNESS AND HOSPITAL COURSE: The patient is a 46-year-old male who presented to the ER initially for complaints of epigastric abdominal pain radiating to the back, sudden in onset, sharp in nature. This was associated with nausea. Patient had elevated blood pressure without symptoms of hypertensive emergency found to be secondary to methamphetamine intoxication. The patient apparently had tried to take ibuprofen for the pain but was not efficacious. Denies any prior episodes of this pain. Initial lipase obtained was 8615, with a white blood cell count of 18.4. The patient also with normal LFTs during this time. CT scan obtained in the ER showing evidence of acute pancreatitis and was admitted to the IMCU under n.p.o. status with IV pain medication. The patient was started on amlodipine with good improvement in his blood pressure which decreased and remained stable throughout the remainder of his hospitalization. Pain also improved over the following days and was started on a clear liquid diet which he tolerated well. The right upper quadrant ultrasound during this time was obtained showing gallbladder sludge which was likely etiology of the symptoms. Dr. Juárez of General Surgery was consulted after the patient was tolerating regular diet without pain and was taken subsequently for laparoscopic cholecystectomy. DISPOSITION: Stable. DISCHARGE INSTRUCTIONS: 1. Location: Home. 2. Followup: Follow up with primary care provider in 7-10 days. 3. Activity: As tolerated. [facility]
== END 2016-12-14 19:11 | disposition home or self-care (01) | DRG 419 ==
LOC: ERS 06:45 → T4-B 09:58 → 2NO 16:05 → CCU 17:52 → 2NO 12-10 10:32 → SURG A 12-12 15:23
PROVIDERS: ADMIT Family Medicine; ATTEND Family Medicine
PROC: 0FT44ZZ Resection of Gallbladder, Percutaneous Endoscopic Approach (ICD-10-PCS; principal; 2016-12-14)
PROC: BF101ZZ Fluoroscopy of Bile Ducts using Low Osmolar Contrast (ICD-10-PCS; 2016-12-14)
DX: K85.10 Biliary acute pancreatitis without necrosis or infection (principal); K76.0 Fatty (change of) liver, not elsewhere classified; F17.210 Nicotine dependence, cigarettes, uncomplicated; K82.8 Other specified diseases of gallbladder; I16.0 Hypertensive urgency; E78.1 Pure hyperglyceridemia; F15.10 Other stimulant abuse, uncomplicated; F12.10 Cannabis abuse, uncomplicated; Z88.0 Allergy status to penicillin; Z82.49 Family history of ischemic heart disease and other diseases of the circulatory system
CPT/HCPCS: 36415; 36416; 47532; 74176; 74177; 76705; 80048; 80053; 80061; 80076; 80306; 80307; 81003; 82248; 82553; 82977; 83036; 83605; 83615; 83690; 84484; 85025; 86704; 86706; 86803; 87340; 87389; 88304; 93005; 96361; 96374; 96375; A4216; C9113; J0131; J0360; J0670; J1100; J1610; J1650; J1885; J1956; J2001; J2060; J2270; J2405; J2704; J3010; Q9961